=== PATIENT | male | born 1935 | race Caucasian/White ===

== ENCOUNTER → 2017-01-03 | Outpatient (CLI) | payer MEDICARE ==
[~2017-01-03] MED LIST: ALLOPURINOL300 MG PO; ASPIRIN EC81 M1 PO; CRESTOR40 MG PO; ECOTRIN81 M1 PO; LEVOTHROID100 MC1 PO; LEVOTHYROXINE100 MCG PO; LEVOXYL88 MCG PO; LIPITOR20 MG PO; NORVASC PO; PLAVIX PO; ROSUVASTATIN CA40 MG; TOPROL XL 50 MG50 M1 PO; TOPROL XL 50 MG50 MG PO
--- NOTE | ~2017-01-03 | CT4 ---
[facility] A Service of [facility] RADIOLOGY TEXT RESULTS PATIENT: RAUL SANCHEZ JR LOCATION: [facility] : 37 UNIT #: [id number] AGE: [address]: Austin Han MD SEX: M ORDER DR: [id number] [facility] [address] [place], [place] [address] [id number] O MR#: [id number] Acc #: [id number] NAME: RAUL SANCHEZ : 1935 SEX: M STUDY DATE/TIME: 01/03/2017 9:17 UNIT: [facility] ROOM: STUDY DESCRIPTION: CT Abd and Pelv Wo Cont Attending Physician: Austin Han M.D. Referring Physician: Austin Han M.D. Ordering Physician: Austin Han M.D. Primary Care Physician: Austin Han M.D. MEDICAL IMAGING REPORT This report is preliminary unless electronic signature is present EXAM CT abdomen and pelvis. INDICATIONS Gross hematuria. Hypertension. Prior left nephrectomy. TECHNIQUE CT of the abdomen and pelvis without contrast. Coronal and sagittal reconstructions were obtained. This CT exam was performed with one or more of the following radiation dose reduction techniques: automatic exposure control, adjustment of mA and/or kV according to patient size, and iterative reconstruction. COMPARISON CT chest dated 03/04/2016 and 10/15/2014. FINDINGS Abdomen: There is a linear area of consolidation/scarring within the lingula. This area is unchanged from the 2015 comparison. There are calcifications at the aortic valve suggesting aortic valvular stenosis. Consider confirmation with echocardiogram. There is a low-attenuation lesion in the posterior right hepatic lobe, consistent with a cyst. There is a small calcified gallstone independent in the gallbladder. No gallbladder distension. The pancreas, spleen, and adrenal glands are within normal limits. Patient is status post left nephrectomy. No recurrent mass or lymphadenopathy near the resection site. Right kidney is within normal limits. There are some vascular calcifications, however no renal calculi. No hydronephrosis. [facility] A Service of [facility] RADIOLOGY TEXT RESULTS PATIENT: RAUL SANCHEZ JR LOCATION: [facility] : 39 UNIT #: [id number] AGE: [address]: Austin Han MD SEX: M ORDER DR: The bowel is not dilated. There are occasional colonic diverticula. The appendix is normal. Pelvis: No pelvic mass. The bladder is decompressed. No enlarged pelvic or inguinal lymph nodes. No acute osseous abnormalities. IMPRESSION 1. Postsurgical change of left nephrectomy. 2. No renal calculi. No hydronephrosis. 3. No findings to account for hematuria. 4. Calcifications at the aortic valve. This is commonly associated with an aortic valvular stenosis. Consider correlation with an echocardiogram. Dictated by... Nikolai Soliz M.D. THIS IS AN ELECTRONICALLY VERIFIED REPORT Nikolai Soliz M.D. at 01/03/2017 1:46 PM MARITZA/lluvia TD: 01/03/2017 12:12 JOB #: [id number] MEDICAL IMAGING REPORT Page 1 of 1 COPY
== END | disposition home or self-care (01) ==
LOC: CCAT 08:55
DX: R31.9 Hematuria, unspecified (principal); I35.8 Other nonrheumatic aortic valve disorders; I35.0 Nonrheumatic aortic (valve) stenosis; Z90.5 Acquired absence of kidney
CPT/HCPCS: 74176

== ENCOUNTER → 2017-04-11 | Outpatient (CLI) | payer MEDICARE ==
--- NOTE | ~2017-04-11 | CO ---
Unit #: [id number] #: [id number] Patient: RAUL SANCHEZ JR [id number] [address] [place], [place] [address] [id number] O MR#: [id number] NAME: RAUL SANCHEZ ROOM: Age: 82 Sex: M Admission Date: 04/11/2017 : 1935 Attending Physician: Shmuel Barraza M.D. Primary Care Physician: Austin Han M.D. Consultation Date: 04/11/2017 CONSULTATION REPORT REASON FOR CONSULTATION Preoperative medical evaluation prior to right total knee arthroplasty scheduled by Dr. Barraza for 04/20/2017. HISTORY OF PRESENT ILLNESS The patient is an 82-year-old male, who presents to preprocedural screening for the reasons indicated above. He underwent left total knee arthroplasty here at [facility] in 02/2016 and tolerated the procedure well. He returns for right total knee arthroplasty as scheduled. He has no complaints at the time of this interview today. 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 It is not associated with any type of chest, upper arm, neck, back, jaw pain or discomfort. He states that the shortness of breath he experiences with activity is less than it was this time last year prior to his previous elective left knee arthroplasty procedure. He denies sleep apnea, although he does have some specific risk factors for sleep apnea. Denies lightheadedness, dizziness, presyncope, or syncope. No palpitations at this time. He denies history of myocardial infarction, congestive heart failure, CVA, TIA, diabetes mellitus and kidney disease. 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 He has been evaluated by Dr. Barraza and scheduled for the above-referenced procedure. PAST MEDICAL HISTORY 1. Osteoarthritis. 2. Hypertensive cardiovascular disease. 3. History of cardiac murmur without known history of rheumatic fever. 4. Hypothyroidism. 5. Risk factors for obstructive sleep apnea. 6. Degenerative disk disease. 7. Remote history of ETOH abuse. 8. Single kidney. 9. Gout. 10. Hyperlipidemia. 11. History of arrhythmia. 12. History of aortic stenosis, status post Lexiscan Cardiolite study in 02/2016, which showed no stress-induced ischemia, ejection fraction of 75%. 2-dimensional echocardiogram in 02/2016 showed mild aortic valvular sclerosis without stenosis, moderate concentric LVH, ejection fraction of 55% and impaired relaxation. 13. Peripheral vascular disease with history of intermittent claudication, treated with aspirin and Plavix. 14. Remote history of tobacco use. Unit #: [id number] #: [id number] Patient: RAUL SANCHEZ JR 15. Allergic rhinitis. 16. Full dentures without oral lesions. PAST SURGICAL HISTORY 1. Left nephrectomy. 2. Right carotid endarterectomy. 3. Bilateral cataract extraction. 4. Left total knee arthroplasty. 5. surgery. The patient denies a personal and family history of complications to anesthesia. ALLERGIES Denies latex allergy. No known medication allergies, although morphine and tramadol causes hallucinations. CURRENT MEDICATIONS Plavix 75 mg p.o. daily, Norvasc 10 mg p.o. daily, allopurinol 300 mg p.o. at bedtime, Crestor 40 mg p.o. at bedtime, Toprol-XL 50 mg p.o. b.i.d., aspirin enteric-coated 81 mg p.o. daily, Levoxyl 88 mcg p.o. in the morning. SOCIAL HISTORY Remote history of tobacco use and remote history of EtOH abuse. Denies illicit drug use. FAMILY HISTORY Per review of Dr. Leonardo' office note; mother, hepatitis; father, alcoholism; sister, malignant neoplasm of the breast; brother, malignant melanoma and family history of coronary artery disease. REVIEW OF SYSTEMS A 10-point review of systems is conducted and otherwise negative except as indicated under history of present illness and past medical history above. PHYSICAL EXAMINATION GENERAL: An 82-year-old male, awake, alert, in no acute distress. VITAL SIGNS: Temperature 98.3, heart rate 52, respiratory rate 18, blood pressure 160/52, oxygen saturation 99% on room air. HEENT: Atraumatic and normocephalic. Sclerae anicteric. No discharge from eyes, ears, or nares. LYMPH: No preauricular, postauricular, tonsillar, submental, anterior, posterior cervical adenopathy. ENDOCRINE: No thyromegaly, thyroid nodules, or tenderness. RESPIRATORY: Clear to auscultation in all ureña bilaterally without wheezes, rhonchi, or rales. CARDIOVASCULAR: S1, S2. Regular rate and rhythm. Grade 2-3/6 systolic murmur best heard at left sternal border at the second intercostal space. GI: Bowel sounds are positive x4. Soft, nontender, nondistended. EXTREMITIES: No edema, cyanosis or clubbing. MUSCULOSKELETAL: Strength 5/5 in all extremities bilaterally to flexion-extension. NEUROLOGIC: Alert and oriented x3. Speech clear. Ambulatory without assistance. Follows directions during examination. DIAGNOSTIC STUDIES LABORATORY RESULTS: WBC 5.5, hemoglobin 12.9, hematocrit 38.7, platelets Unit #: [id number] #: [id number] Patient: RAUL SANCHEZ JR 108,000. Sodium 138, potassium 3.9, chloride 104, CO2 of 27, glucose 93, BUN 14, creatinine 1.2, calcium 9.0, AST 18, ALT 13, alkaline phos 79, bilirubin total 0.7, total protein 6.5, albumin 3.8. PT 10.7, INR 1.0. Blood type A positive, antibody screen negative. Urinalysis; leukocyte esterase negative, nitrites negative, ketone negative, protein 2+, blood 1+, rbc 0 to 2, wbc 0 to 2, bacteria negative, squamous cells none seen. Urine culture not indicated at this time. MRSA nasal swab report pending at this time. IMAGING STUDIES: Two-view chest x-ray report is pending at this time. CARDIOLOGY: 12-lead EKG, date of study 11/29/2016, normal ECG except for rate with ventricular rate of 58 beats per minute. Cardiolite Lexiscan test and 2D echo report with results as dictated above. IMPRESSION The patient is an 82-year-old male, who presents to preprocedural screening for, 1. Preoperative medical evaluation prior to right total knee arthroplasty. The patient's Haley revised cardiac risk index is equal to 0.4% to 0.5% based on risk factors and information available today. This represents the rate of fatal or nonfatal myocardial infarction, cardiopulmonary arrest, arrhythmia and/or pulmonary edema. This has been discussed in detail with the patient. He wishes to proceed with surgery as scheduled at this time. Again, the patient has preoperative cardiac clearance from Dr. Leonardo. 2. Hypertension/atherosclerotic cardiovascular disease, status post right carotid endarterectomy. We will continue home dose of Plavix and low-dose aspirin perioperatively. 3. History of cardiac murmur, stable. 4. Hypothyroidism. TSH and free T4 are pending at this time. Pending that result, continue home dose of L-thyroxine. 5. Risk factors for obstructive sleep apnea. The patient is asymptomatic at this time. We will monitor in PACU and place the patient on obstructive sleep apnea protocol if indicated at that time. 6. Osteoarthritis. 7. Degenerative disk disease. 8. Remote history of ethanol abuse. 9. Single kidney. Monitor creatinine postoperatively. 10. Gout, continue allopurinol. The patient has no complaints today. 11. Hyperlipidemia. Continue allopurinol and monitor renal function. 12. History of arrhythmia and aortic sclerosis without stenosis. The patient has a faint murmur on clinical examination today. The patient will be followed by Dr. Austin Han, his PCP, postoperatively. Consideration may be given to postoperative low level telemetry on the orthopedic unit. 13. Peripheral vascular disease with history of intermittent claudication, asymptomatic at this time. Continue Plavix and aspirin perioperatively. 14. Remote history of tobacco use. Two-view chest x-ray report is pending at this time. 15. History of allergic rhinitis. Thank you for allowing us to participate in the care of this patient. We will gladly follow the patient for postop medical management. However, the patient has requested that he be followed postoperatively by Dr. Austin Han, his PCP. Dictated by... Radha Clark A.P.R.N. for Unit #: [id number] #: [id number] Patient: RAUL SANCHEZ JR, M.D. RLC/loulou TD: 04/11/2017 23:30 JOB #: [id number] CONSULTATION REPORT Page 1 of 1 X Radha Clark APRN X CONSULTATION REPORT
--- NOTE | ~2017-04-11 | CR63 ---
[facility] A Service of [facility] RADIOLOGY TEXT RESULTS PATIENT: RAUL SANCHEZ JR LOCATION: [facility] : 37 UNIT #: [id number] AGE: [address]: Shmuel Barraza MD SEX: M ORDER DR: [id number] [facility] [address] [place], [place] [address] [id number] O MR#: [id number] Acc #: [id number] NAME: RAUL SANCHEZ : 1935 SEX: M STUDY DATE/TIME: 04/11/2017 12:56 UNIT: [facility] ROOM: STUDY DESCRIPTION: CR Chest 2 View Attending Physician: Shmuel Barraza M.D. Referring Physician: Shmuel Barraza M.D. Ordering Physician: Shmuel Barraza M.D. Primary Care Physician: Austin Han M.D. MEDICAL IMAGING REPORT This report is preliminary unless electronic signature is present EXAM Chest 04/11/2017 HISTORY 82-year-old male preop clearance for right total knee arthroplasty. Osteoarthritis right knee. COMPARISON Chest 02/29/2016, chest CT 10/15/2014, 03/04/2016. FINDINGS PA and lateral chest views show mild stable cardiomegaly. Parenchymal density is again noted along the left cardiac border. This remains indeterminate but appears essentially unchanged from 02/29/2016. Hilar structures are preserved. Bilateral lungs are expanded and clear. IMPRESSION 1. Stable mild cardiomegaly 2. Stable indeterminate parenchymal density in the region of the lingula obscuring the left cardiac border. 3. No acute chest finding. Dictated by... Nicolas Matute M.D. THIS IS AN ELECTRONICALLY VERIFIED REPORT Nicolas Matute M.D. at 04/11/2017 3:55 PM SIGRID/brianna TD: 04/11/2017 15:41 JOB #: [id number] MEDICAL IMAGING REPORT [facility] A Service of [facility] RADIOLOGY TEXT RESULTS PATIENT: RAUL SANCHEZ JR [id number] 39 UNIT #: [id number] AGE: [address]: Shmuel Barraza MD SEX: M ORDER DR: Page 1 of 1 COPY
[2017-04-11 09:54] LABS: HEMATOCRIT 38.7 % (38.0-50.0); HEMOGLOBIN 12.9 gm/dL (13.0-16.0); MEAN CELL VOLUME 91.8 FL (83-96); MEAN CORPUSCULAR HEMOGLOBIN 30.7 PG (28-34); MEAN CORPUSCULAR HGB CONC 33.4 g/dL (30-36); MEAN PLATELET VOLUME 8.8 FL (6.5-11.5); RED BLOOD COUNT 4.21 X10e (3.90-5.60); RED CELL DISTRIBUTION WIDTH 15.1 % (11.0-15.5); WHITE BLOOD COUNT 5.5 X10e3 (4.0-10.5)
[2017-04-11 10:13] LABS: PROTHROMBIN TIME (PATIENT) 10.7 SECONDS (10.0-11.7)
[2017-04-11 10:42] LABS: ALBUMIN SERUM 3.8 g/dL (3.5-5.0); BILIRUBIN,TOTAL 0.7 mg/dL (0.2-2.0); BUN/CREATININE RATIO 11.66; CREATININE SERUM 1.2 mg/dL (0.6-1.4); GLOM FILT RATE Estimated 56.8 mL/min (>60); POTASSIUM 3.9 mmol/L (3.5-5.1); PROTEIN TOTAL SERUM 6.5 g/dL (6.0-8.3)
[2017-04-11 11:31] LABS: URINE APPEARANCE CLEAR; URINE BILIRUBIN NEG (NEG); URINE BLOOD 1+ (NEG); URINE COLOR YELLOW; URINE GLUCOSE NEG (NEG); URINE KETONE NEG (NEG); URINE LEUKOCYTE ESTERASE NEG (NEG); URINE NITRATE NEG (NEG); URINE PROTEIN 2+ (NEG); URINE SPECIFIC GRAVITY 1.006 (1.003-1.035); URINE UROBILINOGEN 0.2 MG/DL (NEG)
[2017-04-11 11:34] LABS: URBCS1 AUWI 0-2 /[HPF] (0-2); URINE BACTERIA AUWI NEG (NEGATIVE); URINE SQUAMOUS EPITHELIAL CELL NONE SEEN /[HPF]; UWBCS1 AUWI 0-2 (0-5)
[2017-04-11 11:36] LABS: CULTURE INDICATED? NO; URINE SOURCE CLEAN CATCH
[2017-04-11 12:09] LABS: THYROID STIMULATING HORMONE 0.38 uIU/ml (0.34-5.60)
[2017-04-11 12:17] LABS: FREE THYROXIN (T4) 1.35 ng/dL (0.58-1.64)
== END | disposition home or self-care (01) ==
LOC: CAMB 09:26
PROVIDERS: Orthopaedic Surgery
DX: Z01.818 Encounter for other preprocedural examination (principal); M17.11 Unilateral primary osteoarthritis, right knee; I10 Essential (primary) hypertension; I51.89 Other ill-defined heart diseases; I25.10 Atherosclerotic heart disease of native coronary artery without angina pectoris; E03.9 Hypothyroidism, unspecified; M10.9 Gout, unspecified; E78.5 Hyperlipidemia, unspecified; I73.9 Peripheral vascular disease, unspecified; R01.1 Cardiac murmur, unspecified; Z90.5 Acquired absence of kidney; Z98.890 Other specified postprocedural states
CPT/HCPCS: 36415; 71020; 80053; 81003; 84439; 84443; 85027; 85610; 86850; 86900; 86901; 87070